=== PATIENT | male | born 1985 ===

== ENCOUNTER → 2017-08-01 | Outpatient (CLI) | payer OTHER ==
[~2017-08-01] VITALS: Ht 152.4 cm; Wt 122.5 kg
[~2017-08-01] MED LIST: FLEXERIL 10 MG PO; VOLTAREM 50 MG PO
== END | disposition home or self-care (01) ==
LOC: PPHC 15:09
DX: M54.89 Other dorsalgia (principal)

== ENCOUNTER 2019-06-27 09:22 | Outpatient (CLI) | payer OTHER | END 2019-06-27 15:00 | disposition home or self-care (01) | LOC: LAB 09:22 | DX: J11.1 Influenza due to unidentified influenza virus with other respiratory manifestations (principal) ==